=== PATIENT | female | born 1970 | race Caucasian/White ===

== ENCOUNTER → 2016-12-13 | Outpatient (CLI) | payer OTHER | LOC: FIMAGING 12:01 | PROVIDERS: ATTEND Obstetrics & Gynecology Gynecology | DX: Z12.31 Encounter for screening mammogram for malignant neoplasm of breast (principal) | CPT/HCPCS: G0202 ==

== ENCOUNTER 2018-01-06 13:59 | Emergency (ER) | payer OTHER ==
[2018-01-06 14:05] VITALS: BP 121/83
[2018-01-06] MEDS ORDERED: PROPARACAINE 0.5% 15 ML OPHT DROP ONE (14:59)
[2018-01-06] MEDS ORDERED: PROPARACAINE/FLUORESCEIN SOD 5 ML OPHT.BTL ONE (14:59)
[2018-01-06] MEDS ORDERED: PROPARACAINE 0.5% 15 ML OPHT DROP OP ONE (15:04)
[2018-01-06] MEDS ORDERED: PROPARACAINE/FLUORESCEIN SOD 5 ML OPHT.BTL OP ONE (15:04)
--- NOTE | 2018-01-06 15:23 | EDPHY ---
H & P Time Seen by Provider: 01/06/18 14:51 HPI/ROS: CHIEF COMPLAINT: Right eye injury HISTORY OF PRESENT ILLNESS: 47-year-old female presents with a right eye injury. She accidentally poked herself in the right eye with the top of a plastic container just prior to arrival. Immediate onset of moderate right eye pain, associated with blood on the white part of the right eye. The pain has resolved. No change in vision or excessive tearing. REVIEW OF SYSTEMS: complete 10 point ROS negative except at noted in the HPI Smoking Status: Never smoked Physical Exam: Visual Acuity: noted from Nurse's notes. Lids: no proptosis, no periorbital erythema or swelling, no vesicles Conjunctivae: subconjunctival hemorrhage laterally Pupils:equal round and reactive to light EOMI Cornea: Normal Anterior chamber:Clear, no hyphema Constitutional: Initial Vital Signs Temperature (C) 36.7 C 01/06/18 14:01 Heart Rate 71 01/06/18 14:01 Respiratory Rate 16 01/06/18 14:01 Blood Pressure 121/83 H 01/06/18 14:01 O2 Sat (%) 98 01/06/18 14:01 O2 Delivery Mode Room Air Allergies/Adverse Reactions: Penicillins Allergy (Intermediate, Verified 01/06/18 14:01) Hives Home Medications: Medication Instructions Recorded Levothyroxine Sodium [Synthroid] 0 mcg PO 02/23/12 Ofloxacin 0.3% [Ocuflox 0.3% (RX)] 2 drops RTEYE Q6 #1 opht.btl 01/06/18 Medical Decision Making ED Course/Re-evaluation: Fluorescein and Alcaine instilled. No corneal abrasion. Globe is intact. Differential Diagnosis: Differential diagnosis includes hyphema, acute iritis, traumatic mydriasis, corneal abrasion, globe rupture. Departure - Departure Disposition: Home, Routine, Self-Care Clinical Impression: Subconjunctival hemorrhage of right eye Condition: Good Instructions: Subconjunctival Hemorrhage (ED) Additional Instructions: Apply an ice pack to the right eye area for 20 minutes every 1-2 hours. To not wear your contacts until cleared by the machine shop lead man. Return for worsening symptoms, change in vision, any concerns. Referrals: Domi Cutler MD [Medical Doctor] - 1-2 days without fail Prescriptions: Ofloxacin 0.3% [Ocuflox 0.3% (RX)] 2 drops RTEYE Q6 #1 opht.btl
== END 2018-01-06 15:36 | disposition home or self-care (01) ==
DX: S05.11XA Contusion of eyeball and orbital tissues, right eye, initial encounter (principal); W22.8XXA Striking against or struck by other objects, initial encounter; Y99.8 Other external cause status